=== PATIENT | male | born 1990 | race Caucasian/White ===

== ENCOUNTER 2020-05-29 14:57 | Outpatient (REF) | payer MEDICAID, OTHER, SELFPAY ==
--- NOTE | 2020-05-29 15:01 | MR_ITS ---
EXAMINATION: MR BRAIN WITHOUT AND WITH CONTRAST CLINICAL INFORMATION: Vision loss right eye. COMPARISON: No relevant prior imaging. TECHNIQUE: Multiplanar MR imaging of the brain was performed without and with contrast. A total of 7 mL Gadavist was utilized for this examination. FINDINGS: Geometric distortion and susceptibility artifact related to the patient's orthodontic hardware degrades image quality on many of the acquired sequences therefore the diagnostic accuracy of this examination is limited. The sequences that are most affected include the diffusion-weighted imaging and gradient recalled echo sequence. Postcontrast images reveal no abnormal mass or enhancement within the intracranial compartment. No intracranial mass effect or midline shift. Lateral and third ventricles are normal. No hydrocephalus. Midline structures including the cervicomedullary junction are normal. No acute bone marrow signal changes. Vascular flow voids are grossly maintained. There is no mastoid or middle ear effusion. Orbits and sinuses cannot be accurately assessed on this examination. MR/MR head/brain wo/w con IMPRESSION: The diagnostic accuracy of this examination is somewhat limited due to the extent of artifact related to the patient's orthodontic hardware. Otherwise unremarkable examination. No abnormal intracranial mass or enhancement.
== END 2020-05-29 14:58 | disposition home or self-care (01) ==
LOC: HO.MRI 14:57
PROVIDERS: PCP Internal Medicine Geriatric Medicine; Visit Provider Internal Medicine Geriatric Medicine
DX: H54.61 Unqualified visual loss, right eye, normal vision left eye (principal)
CPT/HCPCS: 70553; A9585